=== PATIENT | female | born 1995 | race Caucasian/White ===

== ENCOUNTER 2016-05-10 12:25 | Emergency (ER) | payer OTHER ==
[2016-05-10 12:39] VITALS: BP 97/58
[2016-05-10] MEDS ORDERED: ONDANSETRON 4 MG TAB.RAPDIS PO ONE (12:49)
--- NOTE | 2016-05-10 12:49 | ER Document Report ---
ED Medical Screen (RME) - General Chief Complaint: Nausea Stated Complaint: DIZZY/NAUSEA Notes: Patient states she was standing in the line at the airport to board a plane to [place] when she became nauseous and dizzy. Patient has a history of hemiplegic migraines and seizures. Also has a history of vasovagal syncope. Complains of right-sided headache, pain level 3 out of 5. No seizure activity. Patient was not allowed to board the plane due to symptoms. I have greeted and performed a rapid initial assessment of this patient. A comprehensive ED assessment and evaluation of the patient, analysis of test results and completion of the medical decision making process will be conducted by additional ED providers. Past Medical History Renal/ Medical History: Denies: Hx Peritoneal Dialysis Physical Exam - Vital signs Vitals: Temp Pulse Resp BP Pulse Ox 98.8 F 74 16 97/58 L 97 05/10/16 12:38 05/10/16 12:38 05/10/16 12:38 05/10/16 12:38 05/10/16 12:38 - HEENT Head: Normocephalic Eyes: Normal Extraocular movements intact: Yes Pupils: PERRL Course - Vital Signs Vital signs: Temp Pulse Resp BP Pulse Ox 98.8 F 74 16 97/58 L 97 05/10/16 12:38 05/10/16 12:38 05/10/16 12:38 05/10/16 12:38 05/10/16 12:38
[2016-05-10 17:12] LABS: ABSOLUTE EOSINOPHILS # (AUTO) 0.1 10^3/uL (0.0-0.6); ABSOLUTE LYMPHOCYTES (AUTO) 2.7 10^3/uL (0.5-4.7); ABSOLUTE MONOCYTES (AUTO) 0.5 10^3/uL (0.1-1.4); ABSOLUTE NEUT (AUTO) 7.3 10^3/uL (1.7-8.2); BASOPHILS % (AUTO) 0.3 % (0-2); EOSINOPHILS % (AUTO) 1.1 % (0-6); HEMATOCRIT 39.4 % (36.0-47.0); HEMOGLOBIN 13.2 g/dL (12.0-15.5); HGB HCT DIFFERENCE 0.2; LYMPHOCYTES % (AUTO) 25.2 % (13-45); MEAN CORPUSCULAR HEMOGLOBIN 30.6 pg (27.0-33.4); MEAN CORPUSCULAR HGB CONC 33.5 g/dL (32.0-36.0); MEAN CORPUSCULAR VOLUME 91 fl (80-97); MONOCYTES % (AUTO) 4.4 % (3-13); RED BLOOD COUNT 4.32 10^6/uL (3.72-5.28); RED CELL DISTRIBUTION WIDTH 12.3 % (11.5-14.0); WHITE BLOOD COUNT 10.6 10^3/uL (4.0-10.5)
--- NOTE | 2016-05-10 17:35 | ER Document Report ---
ED General - General Chief Complaint: Nausea Stated Complaint: DIZZY/NAUSEA Information source: Patient Notes: Patient is a 21-year-old female that presents today with the onset of feeling " a little lightheaded and nauseous with some "lip tingling" prior to boarding the plane. She denies any headache, neck pain, weakness or numbness, vomiting, belly pain, dysuria, or missed menstrual periods. Patient states she has a history of vasovagal syncope, complex migraines, Lyme's disease. Patient denies any symptoms at this time. - HPI Onset: Other - See above Onset/Duration: Sudden Quality of pain: Other - See above Severity: None Pain Level: Denies Associated symptoms: Other - See above Exacerbated by: Denies Relieved by: Denies Similar symptoms previously: Yes Recently seen / treated by doctor: No - Related Data Allergies/Adverse Reactions: No Known Allergies Allergy (Unverified 05/10/16 12:48) Past Medical History - General Information source: Patient - Social History Smoking Status: Never Smoker Cigarette use (# per day): No Chew tobacco use (# tins/day): No Smoking Education Provided: No Frequency of alcohol use: None Drug Abuse: None Family History: Reviewed & Not Pertinent Patient has suicidal ideation: No Patient has homicidal ideation: No Neurological Medical History: Reports: Hx Migraine, Hx Seizures Renal/ Medical History: Denies: Hx Peritoneal Dialysis - Immunizations Hx Diphtheria, Pertussis, Tetanus Vaccination: Yes Review of Systems - Review of Systems Constitutional: denies: Fever EENT: denies: Eye discharge, Nose discharge Respiratory: denies: Short of breath Gastrointestinal: denies: Vomiting Genitourinary: denies: Dysuria Musculoskeletal: denies: Leg swelling Skin: Other - no hives. denies: Rash Neurological/Psychological: Other - no slurred speech -: Yes All other systems reviewed and negative Physical Exam - Vital signs Vitals: Temp Pulse Resp BP Pulse Ox 98.8 F 74 16 97/58 L 97 05/10/16 12:38 05/10/16 12:38 05/10/16 12:38 05/10/16 12:38 05/10/16 12:38 Notes: Reviewed vital signs and nursing note as charted by RN. CONSTITUTIONAL: Alert and oriented and responds appropriately to questions. Well -appearing; well-nourished HEAD: Normocephalic; atraumatic EYES: PERRL NECK: Supple without meningismus; non-tender; no cervical lymphadenopathy, no masses CARD: Regular rate and rhythm; no murmurs, no clicks, no rubs, no gallops; symmetric distal pulses RESP: Normal chest excursion without splinting or tachypnea; breath sounds clear and equal bilaterally; no wheezes, no rhonchi, no rales ABD/GI: Normal bowel sounds; non-distended; soft, non-tender, no rebound, no guarding; no palpable organomegaly or masses BACK: The back appears normal and is non-tender to palpation, there is no CVA tenderness EXT: Normal ROM in all joints; non-tender to palpation; no cyanosis, no effusions, no edema SKIN: Normal color for age and race; warm; dry; good turgor; capillary refill < 2 seconds; no acute lesions noted NEURO: CN II through XII are intact. Patient has 5 out of 5 bilateral upper lower externally strength with sensation intact to light touch. PSYCH: The patient's mood and manner are appropriate. Grooming and personal hygiene are appropriate. Course - Re-evaluation Re-evalutation: 05/10/16 17:34 Given the history and physical examination we will order basic labs, EKG, urinalysis and test. Patient denies any symptoms and has no focal neurological deficits at this time. 05/10/16 18:03 Heart rate 59, normal sinus rhythm, minimal right axis deviation, no obvious ST elevation or depression. Given the history and physical examination, laboratory values, normal hemoglobin , electrolytes, no chest pain, I believe the risk of acute infection, pulmonary embolism, or acute intracranial lesion to be extremely unlikely. Patient will be discharged home with strict return precautions. - Vital Signs Vital signs: Temp Pulse Resp BP Pulse Ox 98.8 F 74 18 97/58 L 97 05/10/16 12:38 05/10/16 12:38 05/10/16 15:28 05/10/16 12:38 05/10/16 12:38 - Laboratory Result Diagrams: 05/10/16 16:45 05/10/16 16:45 Laboratory results interpreted by me: 05/10/16 05/10/16 16:45 16:45 WBC 10.6 H Calcium 10.4 H Discharge - Discharge Clinical Impression: Dizziness Condition: Good Disposition: HOME, SELF-CARE Additional Instructions: Come back immediately with any return of dizziness, numbness or weakness, fevers or vomiting, chest pain or palpitations, or any other acute problems. Please follow-up with your doctor as we have discussed.
[2016-05-10 17:36] LABS: ANION GAP 16 (5-19); BLOOD UREA NITROGEN 13 mg/dL (7-20); CALCIUM 10.4 mg/dL (8.4-10.2); CARBON DIOXIDE 23 mmol/L (22-30); CHLORIDE 102 mmol/L (98-107); GLUCOSE 85 mg/dL (75-110); POTASSIUM 4.3 mmol/L (3.6-5.0); SODIUM 141.4 mmol/L (137-145)
--- NOTE | 2016-05-10 18:25 | EKG REPORT ---
SEVERITY:- OTHERWISE NORMAL ECG - SINUS RHYTHM BORDERLINE RIGHT AXIS DEVIATION : Confirmed by: Mustapha Rasmussen MD 10-May-2016 18:24:53
[2016-05-10 18:36] LABS: APPEARANCE,URINE CLEAR; BILIRUBIN,URINE NEGATIVE (NEGATIVE); GLUCOSE, URINE NEGATIVE (NEGATIVE); KETONES,URINE TRACE mg/dL (NEGATIVE); LEUKOCYTE ESTERASE,URINE NEGATIVE (NEGATIVE); NITRITE,URINE NEGATIVE (NEGATIVE); PROTEIN,URINE NEGATIVE (NEGATIVE); URINE SPECIFIC GRAVITY 1.013; UROBILINOGEN,URINE NEGATIVE mg/dL (<2.0)
== END 2016-05-10 19:15 | disposition home or self-care (01) ==
LOC: ER 12:25
DX: R42 Dizziness and giddiness (principal); R11.0 Nausea
CPT/HCPCS: 93005; 99283; 36415; 85025; 81025; 80048; 81001; 93010; S0119